=== PATIENT | female | born 1950 | race Caucasian/White ===

== ENCOUNTER 2020-10-28 10:02 | Outpatient (RCR) | payer MEDICARE, SELFPAY ==
--- NOTE | 2020-10-28 11:10 | PTOPEVAL ---
Thank you for referring Rachel Jain to [facility].? The patient is scheduled to be seen for therapy? ____x/week for ___ weeks. Please review, sign, date and return this plan of care EVELIA. I agree with and certify that the following plan of care is medically necessary. 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 she reports prior to surgery she was having difficulty with bending her knee due to pain and swelling. she reports she was able to walk without an AD. she reports she was not walking much due to pain prior to surgery. patient reports the hardest thing for her to do was get up after sitting for a while. she reports she wants to get back to walking longer distance, getting up and down without issues, get in and out of cars, go up and down steps with ease. Pain Assessment Timing of Pain Assessment Timing of Pain Assessment Assessment Pain Scale Pain Scale Used Numeric (1 - 10) Self Report Pain Assessment Left Knee(s) Reported Pain Level 2 Pain Score Pain Score 2: Self Report Interventions Used Interventions Used By Clinicians Activity or ADL's,Compression Pump,Education,Exercise,Ice Lower Extremity Range of Motion Knee Range of Motion Left Knee Flexion Range of Motion - Active 45 Knee Extension Range of Motion - Active -3 Query Text: Lower Extremity Muscle Strength Testing Hip Strength Right Hip Flexion Strength 4+ Good + Left Hip Flexion Strength 3+ Fair + Hip Strength Comments 5 degree extension lag of the L knee with SLR Knee S
--- NOTE | 2020-11-23 15:05 | PTOPEVAL ---
Thank you for referring Rachel Jain to [facility].? The patient is scheduled to be seen for therapy? ____x/week for ___ weeks. Please review, sign, date and return this plan of care EVELIA. I agree with and certify that the following plan of care is medically necessary. 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 She reports that pain increases to 8/10 when performing active and passive knee flexion. She reports that she no longer requires use of her pain medications, but is still being presecibed Aspirin as a blood thinner to prevent DVTs. Pain Assessment Pain Scale Pain Scale Used Numeric (1 - 10) Self Report Pain Assessment Left Knee(s) Reported Pain Level 2 Lowest Pain Intensity 2 Greatest Pain Intensity 8 Pain Score Pain Score 2: Self Report Interventions Used Interventions Used By Clinicians Compression Pump,Ice Lower Extremity Range of Motion Knee Range of Motion Left Knee Flexion Range of Motion - Active 81 Knee Flexion Range of Motion - Passive 87 Knee Extension Range of Motion - Active -2 Query Text: Knee Extension Range of Motion - Passive -1 Lower Extremity Muscle Strength Testing Hip Strength Right Hip Flexion Strength 4+ Good + Left Hip Flexion Strength 4 Good Knee Strength Right Knee Flexion Strength 5 Normal Knee Extension Strength 4+ Good + Left Knee Flexion Strength 4 Good Knee Extension Strength 4- Good - Muscle Length Testing Muscle Length Testing Left Hamstring Length 0 Query Text:(90 - 90 Position) Right Hamstring Length 0 Query Text:(90 - 90 Position) Palpation Assessment Palpation Palpation Patient reports no pain with palpation. To either side of
== END 2020-12-28 14:14 | disposition home or self-care (01) ==
LOC: CHSPT 10:02
PROVIDERS: Visit Provider Orthopaedic Surgery
DX: Z96.652 Presence of left artificial knee joint (principal)
CPT/HCPCS: 97016; 97110; 97161; 97530